=== PATIENT | male | born 1950 | race Caucasian/White ===

== ENCOUNTER → 2018-04-18 | Outpatient (CLI) | payer MEDICARE, OTHER ==
[2015-11-30 10:25] VITALS: BP 142/77
[~2018-04-18] MED LIST: AMLO2.5T5 PO; ATOR10TA PO; DOXY20TA5 PO
--- NOTE | 2018-04-18 12:36 | KCIC ---
Examination: 2 views of the left shoulder HISTORY: History of left shoulder pain COMPARISON: None available FINDINGS: The humerus head is within the glenoid. Mild degenerative changes identified in the glenohumeral joint, acromioclavicular joint.There is no acute fracture or dislocation identified. Impression: Mild degenerative changes left glenohumeral joint, acromioclavicular joint. Electronically signed by: Umesh Reagan MD (04/18/2018 12:31 PM) [facility]
== END | disposition home or self-care (01) ==
LOC: KCIC 11:57
PROVIDERS: ATTEND Family Medicine
DX: M19.012 Primary osteoarthritis, left shoulder (principal); E78.00 Pure hypercholesterolemia, unspecified; I10 Essential (primary) hypertension; K21.9 Gastro-esophageal reflux disease without esophagitis
CPT/HCPCS: 73030

== ENCOUNTER → 2018-09-10 | Outpatient (CLI) | payer MEDICARE, OTHER ==
[2015-11-30 10:25] VITALS: BP 142/77
--- NOTE | 2018-09-10 12:18 | KCIC ---
MR of the left shoulder HISTORY: Left shoulder pain since December 2017. Lifting injury. TECHNIQUE: Routine multiplanar sequences are obtained. FINDINGS: Acromioclavicular joint is mildly degenerative. There is generalized rotator cuff tendinosis. Linear full-thickness tear across the anterior supraspinatus footprint attachment is ill-defined but measures about 1 cm AP diameter. The undersurface fibers are retracted about 15 mm. Mild fluid in the subdeltoid bursa. Partial subscapularis tendon tear. Mild rotator cuff muscle atrophy. No significant glenohumeral joint effusion. Tear of the posterosuperior labrum with a degenerative appearance. Heterogeneous signal involving the inferior labrum compatible with at least degeneration. Mild glenohumeral joint degenerative change. Slight medial subluxation of the biceps tendon at the upper bicipital groove with tendinosis. No bone destruction. No acute fracture. Subcoracoid bursal effusion. IMPRESSION: 1. Rotator cuff tendinosis. Small full-thickness tear of the anterior supraspinatus tendon footprint. Partial subscapularis tendon tear. 2. Biceps tendinosis with slight medial subluxation. 3. Labral degeneration. Degenerative tear of the posterosuperior labrum. Electronically signed by: Dano Granda MD (09/10/2018 12:16 PM) [id number]
== END | disposition home or self-care (01) ==
LOC: KCIC MRI 07:51
PROVIDERS: ATTEND Orthopaedic Surgery
DX: S43.082A Other subluxation of left shoulder joint, initial encounter (principal); S46.012A Strain of muscle(s) and tendon(s) of the rotator cuff of left shoulder, initial encounter; M62.512 Muscle wasting and atrophy, not elsewhere classified, left shoulder; M19.012 Primary osteoarthritis, left shoulder; X50.9XXA Other and unspecified overexertion or strenuous movements or postures, initial encounter; Y93.89 Activity, other specified; Y92.89 Other specified places as the place of occurrence of the external cause; Y99.8 Other external cause status
CPT/HCPCS: 73221